=== PATIENT | female | born 1950 | race Caucasian/White ===

== ENCOUNTER → 2019-10-03 07:46 | Outpatient (CLI) | payer MEDICARE, OTHER, SELFPAY ==
[2019-10-01 11:46] VITALS: BMI 21.7
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
== END ==
PROVIDERS: PCP Physician Assistant; Referring Provider Orthopaedic Surgery; Visit Provider Orthopaedic Surgery
DX: S82.131A Displaced fracture of medial condyle of right tibia, initial encounter for closed fracture (principal)
CPT/HCPCS: 73700

== ENCOUNTER → 2019-10-27 11:28 | Outpatient (CLI) | payer MEDICARE, OTHER, SELFPAY ==
[2019-10-27 08:11] VITALS: BMI 21.7
--- NOTE | 2019-10-27 11:28 | RAD_ITS ---
STUDY: X-RAY - RIGHT KNEE REASON FOR EXAM: Female, 69 years old. PAIN TECHNIQUE: 2 view(s) of the knee. COMPARISON: 4 views of the right knee November 01, 2016; CT right knee October 03, 2019 FINDINGS: There is stable mild demineralization of the distal femur as well as stable early periarticular spurring of the femoral condyles. There is stable demineralization of the visualized proximal tibia and fibula. There is an impacted, relatively nondisplaced transverse fracture of the proximal tibial metaphysis. Stable cortical spurring at the medial tibial plateau and tibial spines. Normal proximal fibula. Stable mild demineralization of the patella. There is stable degenerative arthrosis of the medial femorotibial compartment with moderate joint space narrowing. There is stable degenerative arthrosis of the lateral femorotibial compartment with moderate joint space narrowing. There is stable mild to moderate degenerative arthrosis of the patellofemoral articulation. Normal proximal tibiofibular articulation. There is no significant joint effusion. The soft tissue structures are unremarkable. RAD/Knee 1 or 2 Views IMPRESSION: 1. Demineralization of the osseous structures. Healing transverse, nondisplaced, mildly impacted fracture of the proximal tibial metaphysis. 2. Stable degenerative changes of the right knee, as noted Electronically Signed: Orestes Lundberg MD at 12:51 EDT , Service support ,
== END ==
PROVIDERS: PCP Physician Assistant; Referring Provider Orthopaedic Surgery; Visit Provider Orthopaedic Surgery
DX: S82.131A Displaced fracture of medial condyle of right tibia, initial encounter for closed fracture (principal)
CPT/HCPCS: 73560

== ENCOUNTER → 2019-11-17 09:39 | Outpatient (CLI) | payer MEDICARE, OTHER, SELFPAY ==
[2019-10-27 08:11] VITALS: BMI 21.7
--- NOTE | 2019-11-17 09:39 | RAD_ITS ---
STUDY: X-RAY - RIGHT KNEE REASON FOR EXAM: Female, 69 years old. FOLLOW UP RT KNEE SURGERY TECHNIQUE: AP and lateral view(s) of the knee. COMPARISON: Comparison is made with prior study dated October 27, 2019. FINDINGS: There is demineralization of the visualized distal femur. There is demineralization of the tibia and fibula. Healing transverse nondisplaced fracture of the proximal tibial plateau. There is severe degenerative arthrosis of the medial femorotibial compartment with severe joint space narrowing. There is severe degenerative arthrosis of the lateral femorotibial compartment with severe joint space narrowing. There is mild degenerative arthrosis of the patellofemoral articulation. Soft tissue swelling. Small joint effusion. RAD/Knee 1 or 2 Views IMPRESSION: Degenerative arthrosis. Healing nondisplaced transverse fracture of the tibial plateau. Electronically Signed: Jere Meza, at 10:30 EDT , Service support ,
== END ==
PROVIDERS: PCP Physician Assistant; Referring Provider Orthopaedic Surgery; Visit Provider Orthopaedic Surgery
DX: S82.141A Displaced bicondylar fracture of right tibia, initial encounter for closed fracture (principal)
CPT/HCPCS: 73560

== ENCOUNTER → 2019-12-29 09:48 | Outpatient (CLI) | payer MEDICARE, OTHER, SELFPAY ==
[2019-11-17 09:56] VITALS: BMI 21.7
--- NOTE | 2019-12-29 09:49 | RAD_ITS ---
STUDY: X-RAY - RIGHT KNEE REASON FOR EXAM: Female, 69 years old. PREV TIBIAL FX. FOLLOW UP TECHNIQUE: 4 view(s) of the knee. COMPARISON: Comparison is made with prior study dated November 17, 2019. FINDINGS: There is demineralization of the visualized distal femur. There is demineralization of the tibia and fibula. Normal proximal tibiofibular articulation. There is evidence of a healed transverse fracture of the proximal tibial plateau. There is severe degenerative arthrosis of the medial femorotibial compartment with severe joint space narrowing. There is moderate degenerative arthrosis of the lateral femorotibial compartment with moderate joint space narrowing. There is mild degenerative arthrosis of the patellofemoral articulation. Minimal residual joint effusion. RAD/Knee 4 or More Views IMPRESSION: Degenerative arthrosis. Healed nondisplaced transverse fracture of the tibial plateau. Electronically Signed: Jere Meza, at 15:30 EDT , Service support ,
== END ==
PROVIDERS: PCP Physician Assistant; Referring Provider Orthopaedic Surgery; Visit Provider Orthopaedic Surgery
DX: S82.141D Displaced bicondylar fracture of right tibia, subsequent encounter for closed fracture with routine healing (principal)
CPT/HCPCS: 73564

== ENCOUNTER → 2021-01-12 14:15 | Outpatient (CLI) | payer MEDICARE, OTHER, SELFPAY ==
[2019-12-29 09:52] VITALS: BMI 21.7
[2021-01-12 17:40] LABS: Absolute Lymphocyte Count 1.76 X10^3/uL (0.83-4.51); Absolute Neutrophil Count 3.6 X10^3/uL (2.0-7.7); Basophil# 0.04 X10^3/uL; Basophil% 0.7 % (0-1); Eosinophil# 0.06 X10^3/uL; Hematocrit 41.4 % (37-47); Hemoglobin 13.3 g/dL (12.0-15.0); Lymphocyte # 1.76 X10^3/ul (0.83-4.51); Lymphocyte % 30.1 % (19-41); Mean Corp Hgb Conc 32.1 g/dL (32-36); Mean Corpuscular Hgb 30.2 pg (27.0-32.0); Mean Corpuscular Volume 94.1 fL (81-99); Mean Platelet Vol. 10.3 fl (6.2-12.0); Monocyte# 0.38 X10^3/uL; Monocyte% 6.5 % (0-10); NRBC Flagged by Analyzer 0 % (0-5); Neutrophil # 3.59 X10^3/uL (2.7-7.7); Neutrophil % 61.4 % (47-70); Platelet Count 309 K/mm3 (150-450); RBC Distribution Width CV 13.6 % (11.6-14.6); White Blood Count 5.9 K/mm3 (4.4-11.0)
[2021-01-12 18:10] LABS: ALB/GLOB Ratio 1.5 RATIO (0.9-2.4); AST(SGOT) 18 U/L (15-37); Alanine Aminotransfer ALT/SGPT 24 U/L (13-56); Albumin, Serum 4.5 g/dL (3.2-5.0); Alkaline Phosphatase 62 U/L (45-117); Anion Gap 8 (5-15); BUN 16 mg/dL (7-18); BUN/Creat Ratio 21.9 RATIO (10-20); Calcium,Total 9.6 mg/dL (8.5-10.1); Chloride 102 mmol/L (98-107); Creatinine, Serum 0.73 mg/dL (0.55-1.02); EST Glomerular Filtration Rate 83 mL/min (>60); Est Glom Filt Rate - Afr Amer 100 mL/min (>60); Glucose 96 mg/dL (74-106); Potassium 3.7 mmol/L (3.5-5.1); Protein, Total 7.5 g/dL (6.4-8.2); Rheumatoid Factor < 10.0 IU/mL (<15); Sodium Level 138 mmol/L (136-145)
[2021-01-13 08:13] LABS: Hepatitis B Surface Antibody Non-Reactive; Hepatitis B Surface Antigen Non-Reactive (Nonreactive); Hepatitis C Antibody Non-Reactive (Nonreactive)
[2021-01-15 15:10] LABS: CCP IgG Antibodies 3 units (0-19)
[2021-01-15 15:19] LABS: ANTINUCLEAR ANTIBODIES DIRECT Negative (Negative)
== END ==
PROVIDERS: PCP Physician Assistant; Referring Provider Internal Medicine Rheumatology; Visit Provider Internal Medicine Rheumatology
DX: M06.4 Inflammatory polyarthropathy (principal); K21.9 Gastro-esophageal reflux disease without esophagitis; M85.80 Other specified disorders of bone density and structure, unspecified site; H91.91 Unspecified hearing loss, right ear
CPT/HCPCS: 36415; 80053; 85025; 86038; 86200; 86431; 86706; 86803; 87340

== ENCOUNTER 2024-02-04 12:00 | Outpatient (RCR) | payer MEDICARE, OTHER, SELFPAY ==
--- NOTE | 2024-01-30 17:19 | HP.PTEVAL2 ---
Patient's Visit Information Visit Information Visit Information: DAXA JEFFRIES is a 73 year old F referred to Physical Therapy by Dr. Tobi Elias DO with a diagnosis of . Date of Evaluation: Physical Therapist: Trey Dill PT, Cert MDT, OCS Anticipated Interventions text: Thank you for the opportunity to evaluate your patient. For Medicare and Medicare HMO plans, please review the plan of care and approve it. It will need to be FAXED BACK to us at [phone] for Medicare purposes. For Medicare only, by signing this I certify the plan of care. Please let me know if there are questions or concerns regarding this plan of care. Physician Signature: Date:
--- NOTE | 2024-01-30 17:21 | HP.PTEVAL ---
Patient's Visit Information Visit Information Visit Information: DAXA JEFFRIES is a 73 year old F referred to Physical Therapy by Dr. Tobi Elias DO with a diagnosis of DISPLACED FRACTURE OF MEDIAL CONDYLE OF LEFT TIBIA ,INTIAL. Date of Evaluation: 01/30/24 Physical Therapist: Trey Dill, PT, Cert MDT, OCS Visit Plan Frequency: 2x /Week Duration: 4 Weeks Plan: BRACE FOR 2WEEKS THEN D/C PT INTERVENTIONS ROM LEFT KNEE ,FLEXABILITY , PRE'S QUADS/HAMS/HIP ,FUNCTIONAL STRENGTHENING AND BALANCE/GAIT TRAINING Subjective Subjective: This 73 y/o female presents to physical therapy with left medial plateau fracture . Patient slipped down hill caused knee to hyperextend and jammed leg. Patient had immediate pain and edema. Seen Family had x-rays ,but decided to DR Elias did x-rays showed fx. Placed in hinge brace unlocked with NWB with crutches [address] gelacio Cormier and shorter brace and was okay to place WBAT with cane and use small brace for 2 weeks. Patient initially had edema .Patient has pain medial knee . Aggravating factors walking/standing and stairs one step at time and unable to squat/kneel. Alleviating factors rest. Patient denies paresthesia/tingling. Sleeping good. Patient has limitations with ADL's and housework tasks. 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 SOCAIL: VOACTION: retired Pain Right Knee: Pain Intensity (Out of 10): 2 Pain Intensity Range: 10 Objective Objective: POSTURE: WFL PALAPTION: mild tender medial joint AROM: 0-115 degrees supine flexion NEURO: intact GAIT: ambulates with straight cane 2 point gait reciprocal pattern with mild decrease stance time EDMA: absent MMT: ( peak force) quads 19.2 ,hamstrings 14.8 n,hip flexion 21.8 ,hip abduction 18.2 STAIR: one steps at time Balance/Special Test Scores Lower Extremity Functional Score: 29 Goals Goal 1:: Patient to be I with HEP Goal Time Frame: 4-6 Weeks Goal 2:: Patient to improve AROM left knee supine flexion 0-130 degrees to improve function and stairs Goal Time Frame: 4-6 Weeks Goal 3:: Patient to improve strength peak force quads/hams hip by 10-15 # to improve function adn walking Goal Time Frame: 4-6 Weeks Goal 4:: Patient to improve normal [place] community distances Goal Time Frame: 4-6 Weeks Goal 5:: Patient to improve LFES score by 10 points to improve QOL and function Goal Time Frame: 4-6 Weeks Goal 6:: Patient to demonstrate 70% improvement with function and housework tasks Goal Time Frame: 4-6 Weeks Rehabilitation Potential Physical Therapy Diagnosis: This patient has left tibial plateau fx with pain ,decrease ROM ,weakness impairs walking and housework tasks thus benefit from skilled PT Rehabilitation Potential: Good Anticipated Interventions Patient/Client Instruction: Educate patient on: Condition and Plan of Care For the Purpose of:: To decrease pain, To increase ROM, To improve muscle performance and motor function, To improve ability to perform ADL's, To increase tolerance to activity/condition/position, To improve ability of physical actions for home/community/work/leisure, To improve gait and locomotor functions, To improve health of tissue, To decrease soft tissue restriction and To improve endurance Therapeutic Exercise to Include: Strength training, Endurance training, Balance training, Passive ROM and Active ROM Comment: QUADS/HAMS/HIP For the Purpose of:: To decrease pain, To increase ROM, To increase oxygenation perfusion, To improve ability to perform ADL's, To increase tolerance to activity/condition/position, To improve ability of physical actions for home/community/work/leisure, To improve gait and locomotor functions, To improve health of tissue, To decrease soft tissue restriction, To increase flexibility/ROM, To improve endurance, To improve balance, To improve safety with gait and To improve tolerance to ADL's Text: Thank you for the opportunity to evaluate your patient. For Medicare and Medicare HMO plans, please review the plan of care and approve it. It will need to be FAXED BACK to us at [phone] for Medicare purposes. For Medicare only, by signing this I certify the plan of care. Please let me know if there are questions or concerns regarding this plan of care. Physician Signature: Date:
--- NOTE | 2024-03-21 09:54 | HP.PT.NRP ---
Patient Information Patient Information: DAXA JEFFRIES was seen in my office for initial evaluation on 01/30/24. The following Plan of Care was established for this patient: POC Established Initial Frequency: 2x /Week Initial Duration: 4 Weeks Anticipated Interventions Patient/Client Instruction: Educate patient on: Condition and Plan of Care For the Purpose of:: To decrease pain, To increase ROM, To improve muscle performance and motor function, To improve ability to perform ADL's, To increase tolerance to activity/condition/position, To improve ability of physical actions for home/community/work/leisure, To improve gait and locomotor functions, To improve health of tissue, To decrease soft tissue restriction and To improve endurance Therapeutic Exercise to Include: Strength training, Endurance training, Balance training, Passive ROM and Active ROM For the Purpose of:: To decrease pain, To increase ROM, To increase oxygenation perfusion, To improve ability to perform ADL's, To increase tolerance to activity/condition/position, To improve ability of physical actions for home/community/work/leisure, To improve gait and locomotor functions, To improve health of tissue, To decrease soft tissue restriction, To increase flexibility/ROM, To improve endurance, To improve balance, To improve safety with gait and To improve tolerance to ADL's Last Seen Last Seen: This patient was last seen in our office . Pertinent comments regarding their Physical therapy will appear below: Patient seen for PT for left medial condyle fx ,D/C due to transportation and plans to get therapy close to home At this point I will be discontinuing this patient from physical therapy. I would be happy to see this patient again in the future if found appropriate by the physician. Thank you! Trey Dill, PT, Cert MDT, OCS Balance/Gait/Functional tests Balance/Special Test Scores Lower Extremity Functional Score: 29
== END 2024-02-04 19:00 | disposition home or self-care (01) ==
LOC: PT 12:00
PROVIDERS: PCP Physician Assistant; Referring Provider Orthopaedic Surgery; Visit Provider Orthopaedic Surgery
DX: S82.132D Displaced fracture of medial condyle of left tibia, subsequent encounter for closed fracture with routine healing (principal)
CPT/HCPCS: 97110; 97162